=== PATIENT | male | born 1985 | race African-American/Black ===

== ENCOUNTER 2017-03-13 11:15 | Emergency (ER) | payer OTHER | END 2017-03-13 13:37 | disposition left against medical advice (07) | LOC: ERS 11:15 | DX: Z53.21 Procedure and treatment not carried out due to patient leaving prior to being seen by health care provider (principal) ==

== ENCOUNTER 2017-04-03 23:11 | Emergency (ER) | payer OTHER ==
[2017-04-04 00:28] LABS: #Basophils 0.1 thou/uL (0.0-0.2); #Eosinphils 0.4 thou/uL (0.0-0.7); #Lymphocytes 2.3 thou/uL (1.20-3.40); #Monocytes 0.5 thou/uL (0.11-0.59); #Neutrophils 3.3 thou/uL (1.40-6.50); %Eosinophils 5.9 % (0.0-10.0); %Lymphocytes 35.2 % (21.0-51.0); %Monocytes 7.2 % (0.0-10.0); Hematocrit 46.3 % (42.0-52.0); Mean Platelet Volume 6.8 fL (7.4-10.4); Red Blood Cell (RBC) Count 4.88 mill/uL (4.70-6.10); White Blood Cell (WBC) Count 6.5 thou/uL (4.8-10.8)
[2017-04-04 00:48] LABS: ALT (SGPT) 64 U/L (8-55); AST (SGOT) 74 U/L (5-34); Alkaline Phosphatase 62 U/L (40-150); Anion Gap 16 mmol/L (10-20); BUN (Urea Nitrogen) 15 mg/dL (8.9-20.6); Bilirubin, Total 0.3 mg/dL (0.2-1.2); Calc. Creatinine Clearance 0 mL/min (70-130); Calcium 9.3 mg/dL (7.8-10.44); Carbon Dioxide 20 mmol/L (22-29); Chloride 105 mmol/L (98-107); Estimated GFR-MDRD Greater than 90; Protein, Total 8.7 g/dL (6.0-8.3)
[2017-04-04] MEDS ORDERED: Sulfameth/Trimethoprim DS 800-160mg TAB ONE (01:17)
--- NOTE | 2017-04-04 08:27 | RAD ---
PORTABLE CHEST ONE VIEW: Date: 04-04-17 Time: 1:12 a.m. History: Cough. FINDINGS: The heart size is normal. The lungs are well expanded and clear. The bony thorax is unremarkable. IMPRESSION: Normal exam. POS: [facility]
== END 2017-04-04 02:10 | disposition home or self-care (01) ==
LOC: ERS 23:11
DX: J20.9 Acute bronchitis, unspecified (principal); B20 Human immunodeficiency virus [HIV] disease
CPT/HCPCS: 36415; 71010; 80053; 83615; 85025

== ENCOUNTER 2017-04-26 10:31 | Emergency (ER) | payer OTHER ==
[~2017-04-26 10:31] MED LIST: ISOVUE-370 76%-LOCM 1 ML ONE
[2017-04-26 11:45] LABS: #Basophils 0.1 thou/uL (0.0-0.2); #Eosinphils 0.3 thou/uL (0.0-0.7); #Lymphocytes 2.1 thou/uL (1.20-3.40); #Monocytes 0.7 thou/uL (0.11-0.59); #Neutrophils 4.5 thou/uL (1.40-6.50); %Basophils 1.1 % (0.0-1.0); %Eosinophils 3.7 % (0.0-10.0); %Lymphocytes 27.7 % (21.0-51.0); %Monocytes 8.9 % (0.0-10.0); Hematocrit 47.5 % (42.0-52.0); Mean Platelet Volume 7.4 fL (7.4-10.4); Red Blood Cell (RBC) Count 5.16 mill/uL (4.70-6.10); White Blood Cell (WBC) Count 7.6 thou/uL (4.8-10.8)
[2017-04-26] MEDS ORDERED: Ketorolac Tromethamine 30 MG/ML VIAL ONE (11:57)
[2017-04-26 12:09] LABS: ALT (SGPT) 40 U/L (8-55); AST (SGOT) 45 U/L (5-34); Alkaline Phosphatase 60 U/L (40-150); Anion Gap 10 mmol/L (10-20); BUN (Urea Nitrogen) 8 mg/dL (8.9-20.6); Bilirubin, Total 0.7 mg/dL (0.2-1.2); Calc. Creatinine Clearance 0 mL/min (70-130); Calcium 9.9 mg/dL (7.8-10.44); Carbon Dioxide 25 mmol/L (22-29); Chloride 101 mmol/L (98-107); Estimated GFR-MDRD Greater than 90; Globulin 4.7 g/dL (2.4-3.5); Protein, Total 8.6 g/dL (6.0-8.3)
--- NOTE | 2017-04-26 12:26 | CT ---
FACIAL CT WITH CONTRAST: INDICATIONS: Dental abscess. FINDINGS: There is streak artifact from the oral cavity, related to dental hardware, which does limit evaluatio n. There is a prominent degree of skin thickening/edema of the left buccal and mental regions, martin tible with regional inflammation. There is associated mild prominence of regional lymph nodes. The imaged aerodigestive tract is patent. No obvious bone destruction of the alveolar margin of the maxi lla, within limitations. The mandible is intact. There is scattered paranasal sinus mucosal thicken ing. IMPRESSION: Findings most consistent with cellulitis of the left face. Underlying myositis may also be present. No drainable fluid collection identified. Regional adenopathy is likely reactive. POS: [facility]
== END 2017-04-26 13:02 | disposition home or self-care (01) ==
LOC: ERS 10:31
DX: K02.9 Dental caries, unspecified (principal); L03.211 Cellulitis of face; B20 Human immunodeficiency virus [HIV] disease
CPT/HCPCS: 70487; 80053; 85025; 96374; J1885